=== PATIENT | male | born 1980 ===

== ENCOUNTER 2017-08-15 09:21 | Emergency (ER) | payer SELFPAY ==
[2017-08-15] MEDS ORDERED: EPINEPHrine 1 MG/10 ML SYR IVP ONE (09:22)
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
== END 2017-08-15 13:15 | disposition expired ==
LOC: EDBD 09:21
DX: S09.90XA Unspecified injury of head, initial encounter (principal); V13.4XXA Pedal cycle driver injured in collision with car, pick-up truck or van in traffic accident, initial encounter; Y99.8 Other external cause status; Y93.55 Activity, bike riding
CPT/HCPCS: 82947-QW